=== PATIENT | female | born 1975 | race Caucasian/White ===

== ENCOUNTER → 2020-06-09 13:41 | Outpatient (CLI) | payer OTHER, MEDICAID, SELFPAY ==
--- NOTE | 2020-06-09 | DI.US.S_ITS ---
PROCEDURE: US PELVIC COMPLETE INDICATIONS: PAIN TECHNIQUE: Real-time scanning was performed of the pelvic organs, with image documentation. Additional endovaginal scanning was necessary due to incomplete visualization of the adnexal and endometrial structures by transabdominal scanning. COMPARISON: [facility], MR, PELVIS W&WO CONTRAST, 09/19/2015, 17:30. [facility], US, PELVIC COMPLETE, 04/22/2014, 17:43. FINDINGS: Transabdominal scanning: Limited scanning through the kidneys shows no hydronephrosis. No pathologic free abdominal or pelvic fluid. Endovaginal scanning: Uterus: Uterus is normal in size at 9.8 x 5 x 5.8 cm. The endometrium measures 12 mm in combined thickness. Ovaries: The right ovary measures 2.8 x 2 x 2 cm. The left ovary measures 3.4 x 2 x 2.6 cm. The ovaries have a normal sonographic appearance. No adnexal masses are seen. IMPRESSION: No significant pelvic ultrasound abnormality is seen. Dictated by: Pio Knutson M.D. on 06/09/2020 at 14:09 Approved by: Pio Knutson M.D. on 06/09/2020 at 14:11
== END ==
PROVIDERS: Family Provider Family Medicine; PCP Family Medicine; Referring Provider Family Medicine; Visit Provider Family Medicine
DX: R10.2 Pelvic and perineal pain (principal)
CPT/HCPCS: 76830; 76856

== ENCOUNTER → 2025-01-22 12:51 | Outpatient (CLI) | payer OTHER, SELFPAY ==
--- NOTE | 2025-01-22 12:53 | DI.RAD.S_ITS ---
PROCEDURE: XR CHEST 2V INDICATIONS: CHEST PAIN TECHNIQUE: 2 views of the chest were acquired. COMPARISON: None. FINDINGS: Surgical changes and devices: Right upper quadrant surgical clips Lungs and pleura: Lungs are clear. No pleural effusions or pneumothorax. Mediastinum: Mediastinal contours are normal. Heart size is normal. Bones and chest wall: No suspicious bony abnormalities. Soft tissues appear unremarkable. IMPRESSION: No acute cardiothoracic process. Dictated by: Eitan Barrientos M.D. on 01/22/2025 at 18:42 Approved by: Eitan Barrientos M.D. on 01/22/2025 at 18:42
--- NOTE | 2025-01-22 13:03 | EKG_ITS ---
[address] [address] Test Date: 2025-01-22 Pat Name: Lesly Jacques Department: [facility] Room: Gender: Female Veterinary Receptionist: JOANIE : 1975 Requested By: Order Number: [id number] Reading MD: Terry Cisneros Measurements Intervals Deal Rate: 108 P: 62 MA: 154 QRS: 60 QRSD: 82 T: 35 QT: 374 QTc: 501 Interpretive Statements Sinus tachycardia Electronically Signed On 01-22-2025 19:11:30 PDT by Terry Cisneros
== END ==
PROVIDERS: Family Provider Family Medicine; PCP Family Medicine; Referring Provider Family Medicine; Visit Provider Family Medicine
DX: R07.9 Chest pain, unspecified (principal)
CPT/HCPCS: 71046; 93005

== ENCOUNTER → 2025-04-30 07:50 | Outpatient (CLI) | payer OTHER, SELFPAY ==
--- NOTE | 2025-04-30 | DI.NM.S_ITS ---
PROCEDURE: NM RAFAEL PERF SPECT SINGLE STUDY Rest only myocardial perfusion SPECT with gated imaging and ejection fraction. The patient never returned to have the stress portion of the test completed. RADIOPHARMACEUTICAL: 25.5 mCi Tc-99m sestamibi IV at rest. INDICATIONS: Chest pain TECHNIQUE: Radiopharmaceutical was at rest. SPECT images were obtained. SPECT myocardial perfusion images were displayed in short axis, horizontal long axis, and vertical long axis views. Gated images were reviewed using [employer] software. COMPARISON: None. FINDINGS: Raw data: There is good myocardial labeling by radiotracer. No significant motion artifacts. Left ventricle function: Gated images demonstrate normal left ventricle wall thickening. No segmental wall motion abnormality. The left ventricle resting end-diastolic volume is 95 mL. Left ventricle rest ejection fraction is 64%; normal values are above 45%. Myocardial perfusion: There is normal distribution of activity in the left ventricular myocardium. No perfusion defects. IMPRESSION: Normal rest only perfusion imaging. Dictated by: Sarah Franco D.O. on 06/22/2025 at 17:19 Approved by: Sarah Franco D.O. on 06/22/2025 at 17:24
--- NOTE | 2025-04-30 | DI.ECHO.S_ITS ---
[place] : : [id number] : [place] : : [id number] : : Phone: [phone] Echocardiogram Report + + :Name: ALAN OROSCO Study Date: 04/30/2025 Height: 64 in : :[facility] ReadingLocation: Weight: 165 lb : : Gender: Female BSA: 1.8 m2 : :: 1975 Age: 49 yrs BP: 154/103 mmHg: :Reason For Study: CHEST PAIN : :Ordering Physician: : :SHELDON GUTHRIE Performed By: Chuck Andujar : :Referring: SHELDON GUTHRIE : + + Interpretation Summary The ejection fraction is estimated to be 55-60%. Diastolic function could not be accurately assessed due to unobtainable data. The right ventricle is normal in size and function. No significant valvular abnormalities. Pulmonary artery pressures cannot be estimated because of the lack of a measurable TR jet velocity but the IVC suggests a CVP of around 3 mmHg. Procedure: A two-dimensional transthoracic echocardiogram with color flow and Doppler was performed. The study quality was technically good. There is no prior echocardiogram noted for this patient. The patient was in normal sinus rhythm during the exam. Left Ventricle: The left ventricle is normal in size. There is normal left ventricular wall thickness. There is no ventricular septal defect visualized. The ejection fraction is estimated to be 55-60%. There are no focal wall motion abnormalities. Diastolic function could not be accurately assessed due to unobtainable data. Right Ventricle: The right ventricle is normal in size and function. Atria: The left atrial size is normal. Right atrial size is normal. There is no Doppler evidence for an interatrial shunt. Mitral Valve: The mitral valve leaflets appear mildly thickened. There is trace mitral regurgitation. Aortic Valve: The aortic valve is trileaflet. The aortic valve opens well. The aortic valve is slightly calcified. There is no aortic valve stenosis. No aortic regurgitation is present. Tricuspid Valve: The tricuspid valve leaflets are thin and pliable. There is a trace or physiologic amount of tricuspid regurgitation. Pulmonary artery pressures cannot be estimated because of the lack of a measurable TR jet velocity but the IVC suggests a CVP of around 3 mmHg. Pulmonic Valve: The pulmonic valve is not well seen, but is grossly normal. There is no pulmonic valvular regurgitation. Great Vessels: The aortic root is normal size. The dimensions of the ascending aorta are normal. The pulmonary artery is normal size. The IVC is of normal diameter and collapses greater than 50% with a sniff. This suggests a low right atrial pressure of 3 mm Hg. Pericardium/ Pleura There is no pericardial effusion. There is no pleural effusion. MMode/2D Measurements & Calculations LVIDd: 4.2 cm LVOT diam: 2.2 cm LVIDs: 2.9 cm Ao root diam: 3.1 cm FS: 29.4 % asc Aorta Diam: 3.5 cm EPSS: 0.40 cm Ao Arch Diam (Prox Trans): 1.4 cm IVSd: 0.95 cm LVPWd: 0.95 cm LV lezama. diameter/BSA (cm/m^2): 2.3 LV sys. diameter/BSA (cm/m^2): 1.6 LA A2 area: 20.6 cm2 RA long axis: 5.4 cm LA A4 area: 17.7 cm2 RA area: 13.6 cm2 LA length (vol): 5.1 cm RA vol: 29.2 ml LA vol: 60.1 ml RA : 16.2 ml/m2 LA vol index: 33.3 ml/m2 IVC diam: 1.1 cm RVD1 (basal): 3.1 cm RVD2 (mid): 2.4 cm TAPSE: 2.4 cm Doppler Measurements & Calculations Ao V2 max: 107.3 cm/sec LVOT Max Ronaldo: 93.1 cm/sec Ao V2 mean: 70.2 cm/sec LV V1 max P.5 mmHg Ao max P.6 mmHg LV V1 VTI: 16.0 cm Ao mean P.3 mmHg FRANCIS(I,D): 3.3 cm2 Ao V2 VTI: 18.4 cm FRANCIS(V,D): 3.3 cm2 sev ratio: 0.87 FRANCIS indexed to BSA (cm^2/m^2): 1.8 MV E max ronaldo: 104.8 cm/sec TR max ronaldo: 217.6 cm/sec MV A max ronaldo: 0.99 cm/sec TR max P.9 mmHg MV E/A: 105.4 PA V2 max: 110.2 cm/sec Med Peak E' Ronaldo: 8.1 cm/sec PA V2 mean: 79.1 cm/sec E/E' med: 12.9 PA mean P.7 mmHg Lat Peak E' Ronaldo: 8.9 cm/sec PA pr(Accel): 43.0 mmHg E/E' lat: 11.8 E/e' average: 12.3 MV dec time: 0.10 sec SV(LVOT): 60.3 ml Reading Physician:10:23 AM
== END ==
PROVIDERS: Family Provider Family Medicine; PCP Family Medicine; Referring Provider Family Medicine; Visit Provider Family Medicine
DX: R07.9 Chest pain, unspecified (principal)
CPT/HCPCS: 78451; 93306; A9502

== ENCOUNTER → 2025-09-02 15:16 | Outpatient (CLI) | payer OTHER, SELFPAY ==
--- NOTE | 2025-09-02 15:17 | DI.US.S_ITS ---
PROCEDURE: US PELVIC COMPLETE INDICATIONS: Pelvic pain TECHNIQUE: Real-time scanning was performed of the pelvic organs, with image documentation. Additional endovaginal scanning was necessary due to incomplete visualization of the adnexal and endometrial structures by transabdominal scanning. COMPARISON: [facility], , US PELVIC COMPLETE, 06/09/2020, 14:01. FINDINGS: Uterus: Uterus is anteverted and normal in size at 9.0 x 4.7 x 5.3 cm. The myometrium is mildly heterogeneous without dominant mass.. The endometrium measures six mm combined thickness. The cervix appears normal. Ovaries: The right ovary measures 2.7 x 1.4 x 2.0 cm, with a calculated ovarian volume of 3.0 cc. The left ovary measures 2.6 x 1.6 x 1.0 cm, with a calculated ovarian volume of 1.9 cc. The ovaries have a normal sonographic appearance. Hemorrhagic corpus luteum in the right ovary. No adnexal masses are seen. Other: No pathologic free abdominal or pelvic fluid. IMPRESSION: Normal pelvic ultrasound. We strive to produce accurate, complete, and clear reports of imaging services. To assist us in improving patient care, this report was composed using standard report templates and voice recognition software. Therefore, it may contain abnormal punctuation, insertions and/or omissions. Occasional wrong-word or sound-alike substitutions may occur. Though we review the report and make efforts to correct it, we do recommend that the report be read carefully in proper context to recognize any text inaccuracies. Dictated by: Sadie Madrid M.D. on 09/03/2025 at 11:24 Approved by: Sadie Madrid M.D. on 09/03/2025 at 11:26
== END ==
PROVIDERS: Family Provider Family Medicine; PCP Family Medicine; Referring Provider Family Medicine; Visit Provider Family Medicine
DX: R10.20 Pelvic and perineal pain unspecified side (principal); N92.1 Excessive and frequent menstruation with irregular cycle
CPT/HCPCS: 76830; 76856

== ENCOUNTER → 2025-09-20 15:15 | Outpatient (CLI) | payer OTHER, SELFPAY ==
--- NOTE | 2025-09-20 15:19 | DI.MG.S_ITS ---
MM screening mammo BI: 09/20/2025. BI-RADS: 0 CLINICAL: 50-year old female for bilateral screening mammogram. Tyrer-Cuzick lifetime risk of 7.5%. No personal or first-degree family history of breast cancer. PRIOR EXAMS No prior examinations available. MAMMOGRAPHY TECHNIQUE: 2D and 3D (tomosynthesis) digital mammographic views obtained, with additional images as needed for full coverage. Current study was also evaluated with a Computer Aided Detection (CAD) system. DENSITY C. The breasts are heterogeneously dense, which may obscure small masses. MAMMOGRAPHY FINDINGS Right: No suspicious mass, asymmetry, microcalcification, or other abnormality seen. Left: Outer at 2:30, Middle depth: Mass needing additional imaging evaluation. IMPRESSION: Right * No evidence of malignancy. Left (Mass): Outer at 2:30, Middle depth * Incomplete - mass needing additional imaging evaluation. RECOMMENDATIONS Left: Outer at 2:30, Middle depth * Further evaluation with diagnostic mammography and diagnostic ultrasound. Ultrasound to be performed only if needed. OVERALL ASSESSMENT CATEGORY BI-RADS-0: Incomplete - Need Additional Imaging Evaluation. ELECTRONICALLY SIGNED: Sadie Madrid M.D. on 09/21/2025 at 12:18:12 PM PT Interpreting Station ID: [id number]
== END ==
LOC: MAMMO 15:16
PROVIDERS: PCP Family Medicine; Referring Provider Family Medicine; Visit Provider Family Medicine
DX: Z12.31 Encounter for screening mammogram for malignant neoplasm of breast (principal); R92.333 Mammographic heterogeneous density, bilateral breasts
CPT/HCPCS: 77063; 77067